=== PATIENT | male | born 1955 | race Caucasian/White ===

== ENCOUNTER 2018-04-29 10:11 | Day surgery (SDC) | payer OTHER ==
[~2018-04-29 10:11] MED LIST: CEFAZOLIN 2 GM/50 ML (PMX) 50 ML IVPB; SOD CHLORIDE 0.9% 1,000 ML IV
[2018-04-29 12:19] LABS: ALANINE AMINOTRANSFERASE 21 IU/L (13-69); ALBUMIN 4.1 g/dl (3.3-4.9); ALBUMIN/GLOBULIN RATIO 1.28; ALKALINE PHOSPHATASE 56 IU/L (42-121); ANION GAP 5 (5-13); ASPARTATE AMINO TRANSFERASE 40 IU/L (15-46); BLOOD UREA NITROGEN 18 mg/dl (7-20); CALCIUM 9.1 mg/dl (8.4-10.2); CARBON DIOXIDE 30 mmol/L (21-31); CHLORIDE 106 mmol/L (97-110); CREATININE 0.52 mg/dl (0.61-1.24); Estimated GFR > 60 mL/min (>60); GLUCOSE 102 mg/dl (70-220); POTASSIUM 4.4 mmol/L (3.5-5.1); SODIUM 141 mmol/L (135-144); TOTAL PROTEIN 7.3 g/dl (6.1-8.1)
[2018-04-29] MEDS ORDERED: EPHEDrine SULFATE 50 MG/5 ML SYG IV (13:00)
[2018-04-29] MEDS ORDERED: FENTAnyl 50 MCG/ML VIAL IV (13:00)
[2018-04-29] MEDS ORDERED: PROCHLORPERAZINE 10 MG INJ IV (13:00)
[2018-04-29] MEDS ORDERED: HYDROmorphONE 1 MG/5 ML IV SYRINGE IV ×3 (13:00)
[2018-04-29] MEDS ORDERED: LABETALOL HCL 20MG INJ IV (13:00)
[2018-04-29] MEDS ORDERED: MEPERIDINE 25 MG INJ IV (13:00)
[2018-04-29] MEDS ORDERED: OXYCODONE/ACETAMINOPHEN (5/325) TAB PO (13:00)
[2018-04-29] MEDS ORDERED: ONDANSETRON 4 MG INJ IV ×2 (13:00→15:00)
[2018-04-29] MEDS ORDERED: DIPHENHYDRAMINE 50 MG INJ IV (13:00)
[2018-04-29] MEDS ORDERED: hydrALAzine 20 MG INJ IV (13:00)
[2018-04-29] MEDS ORDERED: BACITRACIN/POLYMYXIN 28.35 GM OINT TOP (13:04)
[2018-04-29] MEDS ORDERED: PROPOFOL 20 ML (13:25)
[2018-04-29] MEDS ORDERED: SUCCINYLCHOLINE CHLORIDE 100 MG/5 ML SYG IV (13:25)
[2018-04-29] MEDS ORDERED: LIDOCAINE 2% (SDV) 5 ML INJ (13:25)
[2018-04-29] MEDS ORDERED: FENTAnyl 50 MCG/ML VIAL (13:25)
[2018-04-29] MEDS ORDERED: ROCURONIUM 50 MG INJ (13:25)
[2018-04-29] MEDS ORDERED: MIDAZOLAM 1 MG/ML 2 ML INJ (13:25)
[2018-04-29] MEDS ORDERED: DEXAMETHASONE 4 MG/ML 5 ML INJ (13:40)
[2018-04-29] MEDS ORDERED: ONDANSETRON 4 MG INJ (13:40)
[2018-04-29] MEDS ORDERED: CEFAZOLIN 1 GM INJ (13:40)
[2018-04-29] MEDS ORDERED: FAMOTIDINE 20 MG INJ (13:40)
[2018-04-29] MEDS: BACITRACIN 50000 UNITS INJ (14:01)
[2018-04-29] MEDS: POLYMYXIN B 500000 UNIT INJ (14:01)
[2018-04-29] MEDS: BUPIVACAINE 0.5%/EPI (SDV) 30 ML INJ (14:03)
[2018-04-29] MEDS ORDERED: GLYCOPYRROLATE 0.4 MG INJ ×2 (14:15→14:26)
[2018-04-29] MEDS ORDERED: NEOSTIGMINE 10 MG INJ (14:15)
[2018-04-29] MEDS ORDERED: EPHEDrine SULFATE 50 MG/5 ML SYG (14:17)
[2018-04-29] MEDS ORDERED: SUGAMMADEX SODIUM 200 MG/2 ML VIAL IV (14:24)
[2018-04-29] MEDS ORDERED: KETOROLAC 30 MG INJ (14:38)
[2018-04-29] MEDS ORDERED: HYDROCODONE/APAP (5/325) TAB PO ×2 (15:00)
[2018-04-29] MEDS ORDERED: IBUPROFEN 600 MG TAB PO (15:00)
[2018-04-29] MEDS ORDERED: KETOROLAC 30 MG INJ IV (15:00)
[2018-04-29] MEDS ORDERED: INSULIN ASPART [NOVOLOG] 3 ML PEN SC (15:00)
== END 2018-04-29 16:10 | disposition home or self-care (01) ==
LOC: SDS 10:11
DX: L05.91 Pilonidal cyst without abscess (principal); E11.9 Type 2 diabetes mellitus without complications; E78.5 Hyperlipidemia, unspecified; I10 Essential (primary) hypertension
CPT/HCPCS: 11772; 80053; 82962; 88304